=== PATIENT | female | born 1985 | race American Indian/Alaskan Native ===

== ENCOUNTER 2017-02-18 11:32 | Inpatient (IN) | payer BC ==
[2017-02-18 12:28] LABS: Basophils % (Auto) 0.7 % (0.0-1.8); Mean Corpuscular HGB Conc 31 % (30-34); Mean Corpuscular Hemoglobin 32 pg (28-32); Mean Corpuscular Volume 106 fl (79-97); Platelet Count 258 K/mm3 (140-440); Red Blood Count 4.62 M/mm3 (3.65-5.03); Red Cell Distribution Width 15.4 % (13.2-15.2); White Blood Count 13.4 K/mm3 (4.5-11.0)
[2017-02-18 12:38] LABS: Hematocrit 48.8 % (30.3-42.9)
[2017-02-18 12:40] LABS: Calcium 10.2 mg/dL (8.4-10.2); Potassium 5.6 mmol/L (3.6-5.0)
[2017-02-18] MEDS ORDERED: D50W (25GM) Syringe IV PRN (12:51)
[2017-02-18] MEDS ORDERED: NACL 0.9% 1000 ML 1,000 ML IV ONE ×2 (12:51)
[2017-02-18 12:56] LABS: Bilirubin,Urine NEG (Negative); Blood,Urine SM (Negative); Ketones,Urine 80 mg/dL (Negative); Leukocyte Esterase,Urine NEG (Negative); Mucus,Urine FEW /HPF; Nitrite,Urine NEG (Negative); Protein,Urine <15 mg/dL mg/dL (Negative); Urobilinogen,Urine < 2.0 mg/dL (<2.0)
--- NOTE | 2017-02-18 12:57 | Emergency Department Report ---
- General Chief complaint: Hyperglycemia Stated complaint: HEART PALPATIONS,HIGH BLOOD SUGAR Time Seen by Provider: 02/18/17 12:31 Source: patient Mode of arrival: Ambulatory Limitations: No Limitations - History of Present Illness Initial comments: 31-year-old female presents emergency Department with elevated blood sugar. Patient states she noticed her blood sugar was high yesterday. Today she feels weak and is having palpitations. She also has some urinary frequency and a increased thirst. Denies fevers chills nausea vomiting. MD Complaint: generalized weakness -: Gradual Location: generalized Severity scale (0 -10): 7 Improves with: none Worsens with: none Associated Symptoms: denies: chest pain, confusion, dark stools, diaphoresis - Related Data Allergies Allergy/AdvReac Type Severity Reaction Status Date / Time No Known Allergies Allergy Verified 02/18/17 11:44 ED Review of Systems ROS: Stated complaint: HEART PALPATIONS,HIGH BLOOD SUGAR Other details as noted in HPI Comment: All other systems reviewed and negative Constitutional: weakness. denies: chills, fever Respiratory: denies: cough, shortness of breath, wheezing Cardiovascular: denies: chest pain, palpitations Endocrine: no symptoms reported Gastrointestinal: denies: abdominal pain, nausea, diarrhea Genitourinary: denies: urgency, dysuria, discharge Musculoskeletal: denies: back pain, joint swelling, arthralgia Skin: denies: rash, lesions Neurological: denies: headache, weakness, paresthesias Psychiatric: denies: anxiety, depression Hematological/Lymphatic: denies: easy bleeding, easy bruising ED Past Medical Hx - Past Medical History Previous Medical History?: Yes Hx Hypertension: Yes Hx Diabetes: Yes - Surgical History Past Surgical History?: No - Family History Family history: no significant - Social History Smoking Status: Current Every Day Smoker Substance Use Type: Alcohol ED Physical Exam - General Limitations: No Limitations General appearance: alert, in no apparent distress - Head Head exam: Present: atraumatic, normocephalic - Eye Eye exam: Present: normal appearance, scleral icterus, conjunctival injection - ENT ENT exam: Present: mucous membranes dry - Neck Neck exam: Present: normal inspection. Absent: tenderness - Respiratory Respiratory exam: Present: normal lung sounds bilaterally. Absent: respiratory distress - Cardiovascular Cardiovascular Exam: Present: regular rate, normal rhythm. Absent: systolic murmur, diastolic murmur, rubs, gallop - GI/Abdominal GI/Abdominal exam: Present: soft, normal bowel sounds. Absent: distended, tenderness - Extremities Exam Extremities exam: Present: normal inspection, pedal edema - Back Exam Back exam: Present: normal inspection. Absent: tenderness, CVA tenderness (R), CVA tenderness (L) - Neurological Exam Neurological exam: Present: alert, oriented X3 - Psychiatric Psychiatric exam: Present: normal affect, normal mood - Skin Skin exam: Present: warm, dry, intact, normal color. Absent: rash ED Course Vital Signs 02/18/17 02/18/17 02/18/17 11:45 12:36 12:41 Temperature 98.3 F 97.6 F Pulse Rate 124 H 111 H 109 H Respiratory 30 H 21 Rate Blood Pressure 139/72 Blood Pressure 122/78 [Left] O2 Sat by Pulse 99 100 Oximetry ED Medical Decision Making - Lab Data Result diagrams: 02/18/17 12:07 02/18/17 12:07 Laboratory Results - last 24 hr 02/18/17 02/18/17 02/18/17 11:51 11:54 12:07 WBC 13.4 H RBC 4.62 Hgb 15.0 H Hct 48.8 H MCV 106 H MCH 32 MCHC 31 RDW 15.4 H Plt Count 258 Lymph % (Auto) 9.9 L [place] % (Auto) 9.3 H Eos % (Auto) 0.0 Baso % (Auto) 0.7 Lymph # 1.3 [place] # 1.2 H Eos # 0.0 Baso # 0.1 Seg Neutrophils % 80.1 H Seg Neutrophils # 10.7 H VBG pH Sodium Potassium Chloride Carbon Dioxide Anion Gap BUN Creatinine Estimated GFR BUN/Creatinine Ratio Glucose POC Glucose > 500 H Calcium Urine Color Straw Urine Turbidity Clear Urine pH 5.0 Ur Specific [place] 1.016 Urine Protein <15 mg/dl Urine Glucose (UA) >=500 Urine Ketones 80 Urine Blood Sm Urine Nitrite Neg Urine Bilirubin Neg Urine Urobilinogen < 2.0 Ur Leukocyte Esterase Neg Urine WBC (Auto) 2.0 Urine RBC (Auto) 1.0 U Epithel Cells (Auto) < 1.0 Urine Mucus Few 02/18/17 02/18/17 12:07 12:07 WBC RBC Hgb Hct MCV MCH MCHC RDW Plt Count Lymph % (Auto) [place] % (Auto) Eos % (Auto) Baso % (Auto) Lymph # [place] # Eos # Baso # Seg Neutrophils % Seg Neutrophils # VBG pH 7.082 L* Sodium 127 L Potassium 5.6 H Chloride 78.0 L Carbon Dioxide 7 L* Anion Gap 48 BUN 27 H Creatinine 1.6 H Estimated GFR 38 BUN/Creatinine Ratio 17 Glucose 722 H* POC Glucose Calcium 10.2 Urine Color Urine Turbidity Urine pH Ur Specific [place] Urine Protein Urine Glucose (UA) Urine Ketones Urine Blood Urine Nitrite Urine Bilirubin Urine Urobilinogen Ur Leukocyte Esterase Urine WBC (Auto) Urine RBC (Auto) U Epithel Cells (Auto) Urine Mucus - Medical Decision Making 31-year-old female with diabetes here with DKA. Patient states that she took her long-acting insulin yesterday but has not been able to use her short-acting insulin for several days. Her pH is 7.08 and her bicarbonate is 17. I'll initiate insulin drip and IV fluids. Patient will need to be admitted to the emergency care unit initially. She is mentating well at this point. Discussed case with IMS and with the intensive care. Portions of this chart were dictated with dictation software. There may be dictation errors contained within this note. Critical Care Time: Yes (35) Critical care attestation.: If time is entered above; I have spent that time in minutes in the direct care of this critically ill patient, excluding procedure time. Critical Care Time: 35 ED Disposition Clinical Impression: DKA (diabetic ketoacidoses) Disposition: DC-09 OP ADMIT IP TO THIS HOSP Is pt being admited?: Yes Condition: Critical Instructions: Diabetic Ketoacidosis (ED)
[2017-02-18 13:24] LABS: Magnesium 2.4 mg/dL (1.7-2.3); Phosphorous 6.6 mg/dL (2.5-4.5)
[2017-02-18] MEDS ORDERED: NACL 0.9% 1000 ML IV ONE (13:47)
[2017-02-18] MEDS ORDERED: DULCOLAX PR PRN (13:47)
[2017-02-18] MEDS ORDERED: PROVENTIL IH PRN (13:47)
[2017-02-18] MEDS ORDERED: ALUM-MAG HYDROX-SIMETH 200-200-20MG/5ML PO PRN (13:47)
[2017-02-18] MEDS ORDERED: MILK OF MAGNESIA PO PRN (13:47)
[2017-02-18] MEDS ORDERED: VANCOMYCIN VIAL IV ONE (13:47)
--- NOTE | 2017-02-18 13:53 | History and Physical Report ---
History of Present Illness Chief complaint: My blood suger is real high, and i just feel sick, and my heart is beating fast History of present illness: 31 YO Female with HTN, DM, Nicotine Dependence, Medication Noncompliance presents to ED for evaluation. Pt states that she has experienced feeling weak and tired for the past 3-4 days with worsening symptoms over the past 12 hours. Pt acknowledges noncompliance with her insulin, polydipsia, polyuria, as well as her heart beating fast, and decreased oral intake. Pt denies fever, chills, CP, Syncope, trauma, vertigo, seizures, vision changes, skin rashes, or recent ill contacts. Pt seen and evaluated in ED and found to have Sepsis and DKA and started on DKA and sepsis protocols. Past History Past Medical History: diabetes, hypertension, other (Nicotine Dependence) Past Surgical History: No surgical history, Other (reviewed) Social history: single, smoking. denies: alcohol abuse, prescription drug abuse , IV drug use Family history: diabetes, hypertension Medications and Allergies Allergies Allergy/AdvReac Type Severity Reaction Status Date / Time No Known Allergies Allergy Verified 02/18/17 11:44 Home Medications Medication Instructions Recorded Confirmed Last Taken Type FLUoxetine HCL [Prozac] 10 mg PO DAILY 02/18/17 02/18/17 02/18/17 History Insulin Detemir [Levemir Flextouch] 28 units SC HS 02/18/17 02/18/17 02/17/17 History Insulin Lispro [Humalog 100 10 units SC TIDWM 02/18/17 02/18/17 02/18/17 11:00 History UNITS/ML Kwikpen] amLODIPine [Norvasc] 10 mg PO DAILY 02/18/17 02/18/17 02/18/17 History Active Meds: Active Medications Al Hydrox/Mg Hydrox/Simethicone (Alum-Mag Hydrox-Simeth 308-724-86rm/5ml) 30 ml PO Q4H PRN PRN Reason: Indigestion Albuterol (Proventil) 2.5 mg IH Q3HRT PRN PRN Reason: Shortness Of Breath Bisacodyl (Dulcolax) 10 mg GA QDAY PRN PRN Reason: constipation unrelieved by MOM Dextrose (D50w (25gm) Syringe) 0 ml IV ONCE PRN PRN Reason: Hypoglycemia Potassium Chloride (Kcl 10meq/100ml) 10 meq in 100 mls @ 100 mls/hr IV Q1H PORSHA Stop: 02/18/17 16:59 Potassium Chloride (Kcl 10meq/100ml) 10 meq in 100 mls @ 100 mls/hr IV Q1H PORSHA Stop: 02/18/17 18:59 Insulin Human Regular 100 (units/ Sodium Chloride) 100 mls @ 1 mls/hr IV TITR PORSHA; 1 UNITS/HR PRN Reason: Protocol Piperacillin Sod/Tazobactam Sod (Zosyn/Ns 4.5gm/100ml) 4.5 gm in 100 mls @ 200 mls/hr IV Q8HR PORSHA PRN Reason: Protocol Magnesium Hydroxide (Milk Of Magnesia) 30 ml PO Q4H PRN PRN Reason: Constipation Sodium Chloride (Nacl 0.9% 1000 Ml) 2,040 ml 30 ml/kg (2040 ml) IV ONCE ONE Stop: 02/18/17 13:48 Vancomycin HCl (Vancomycin Pharmacy To Dose) 1 each IV PKCONSULT PORSHA PRN Reason: Protocol Vancomycin HCl (Vancomycin Vial) 1,250 mg 20 mg/kg (1250 mg) IV ONCE ONE PRN Reason: Protocol Stop: 02/18/17 13:48 Review of Systems Constitutional: no weight loss, no weight gain, no fever, no chills, no sweats Ears, nose, mouth and throat: no ear pain, no ear discharge, no tinnitis, no decreased hearing, no nose pain Breasts: no change in shape, no swelling, no mass Cardiovascular: rapid/irregular heart beat, no chest pain, no orthopnea, no edema, no syncope, no lightheadedness, no shortness of breath Respiratory: no cough, no cough with sputum, no excessive sputum, no hemoptysis , no shortness of breath, no dyspnea on exertion Gastrointestinal: no abdominal pain, no nausea, no vomiting, no diarrhea, no constipation, no change in bowel habits Genitourinary Female: no pelvic pain, no flank pain, no menorrhagia Rectal: no pain, no incontinence, no bleeding Musculoskeletal: no neck stiffness, no neck pain, no shooting arm pain, no arm numbness/tingling, no low back pain Integumentary: no rash, no pruritis, no redness, no sores, no wounds, no jaundice Neurological: no head injury, no transient paralysis, no paralysis, no weakness , no parathesias, no numbness, no tingling Psychiatric: no anxiety, no memory loss, no change in sleep habits, no sleep disturbances, no insomnia, no hypersomnia Endocrine: excessive thirst, polydipsia, polyuria, high blood sugars, no cold intolerance, no heat intolerance, no excessive sweating, no flushing, no weight change, no deepening of the voice, no recent glucocorticoid use Hematologic/Lymphatic: no easy bruising, no easy bleeding Allergic/Immunologic: no urticaria, no allergic rhinitis, no wheezing Exam - Constitutional Vitals: Temp Pulse Resp BP Pulse Ox 97.6 F 109 H 21 122/78 100 02/18/17 12:41 02/18/17 12:41 02/18/17 12:41 02/18/17 12:41 02/18/17 12:41 General appearance: Present: mild distress, disheveled - EENT Eyes: Present: PERRL ENT: hearing intact, clear oral mucosa - Neck Neck: Present: supple, normal ROM - Respiratory Respiratory effort: normal Respiratory: bilateral: CTA - Cardiovascular Rhythm: other (tachycardia) Heart Sounds: Present: S1 & S2. Absent: gallop, systolic murmur, diastolic murmur, rub, click - Extremities Extremities: pulses symmetrical, No edema Peripheral Pulses: abnormal (Capillary refill: 3.5 seconds) - Abdominal General gastrointestinal: Present: soft, non-tender, non-distended, normal bowel sounds Female genitourinary: Present: normal - Integumentary Integumentary: Present: clear, dry, decreased turgor - Musculoskeletal Musculoskeletal: strength equal bilaterally - Psychiatric Psychiatric: appropriate mood/affect, intact judgment & insight - Neurologic Neurologic: CNII-XII intact, moves all extremities Results - Labs CBC & Chem 7: 02/18/17 12:07 02/18/17 Unknown Labs: Abnormal lab results 02/18/17 02/18/17 02/18/17 Range/Units 11:51 12:07 12:07 WBC 13.4 H (4.5-11.0) K/mm3 Hgb 15.0 H (10.1-14.3) gm/dl Hct 48.8 H (30.3-42.9) % MCV 106 H (79-97) fl RDW 15.4 H (13.2-15.2) % Lymph % (Auto) 9.9 L (13.4-35.0) % [place] % (Auto) 9.3 H (0.0-7.3) % [place] # 1.2 H (0.0-0.8) K/mm3 Seg Neutrophils % 80.1 H (40.0-70.0) % Seg Neutrophils # 10.7 H (1.8-7.7) K/mm3 VBG pH (7.320-7.420) Sodium 127 L (137-145) mmol/L Potassium 5.6 H (3.6-5.0) mmol/L Chloride 78.0 L (98-107) mmol/L Carbon Dioxide 7 L* (22-30) mmol/L BUN 27 H (7-17) mg/dL Creatinine 1.6 H (0.7-1.2) mg/dL Glucose 722 H* (65-100) mg/dL POC Glucose > 500 H (70-105) Phosphorus (2.5-4.5) mg/dL Magnesium (1.7-2.3) mg/dL 02/18/17 02/18/17 Range/Units 12:07 12:07 WBC (4.5-11.0) K/mm3 Hgb (10.1-14.3) gm/dl Hct (30.3-42.9) % MCV (79-97) fl RDW (13.2-15.2) % Lymph % (Auto) (13.4-35.0) % [place] % (Auto) (0.0-7.3) % [place] # (0.0-0.8) K/mm3 Seg Neutrophils % (40.0-70.0) % Seg Neutrophils # (1.8-7.7) K/mm3 VBG pH 7.082 L* (7.320-7.420) Sodium (137-145) mmol/L Potassium (3.6-5.0) mmol/L Chloride (98-107) mmol/L Carbon Dioxide (22-30) mmol/L BUN (7-17) mg/dL Creatinine (0.7-1.2) mg/dL Glucose (65-100) mg/dL POC Glucose (70-105) Phosphorus 6.60 H (2.5-4.5) mg/dL Magnesium 2.40 H (1.7-2.3) mg/dL Assessment and Plan - Patient Problems (1) Sepsis Current Visit: Yes Status: Acute Qualifiers: Sepsis type: S Plan to address problem: IV abx, IVF resuscitation, monitor uop q shift, blood cultures, serial lactic acid The high probability of a clinically significant, sudden or life threatening deterioration of the [Cardiac, pulmonary, endocrine] system(s) required my full and direct attention, intervention and personal management. The aggregate critical care time was [65] minutes. This time is in addition to time spent performing reported procedures but includes the following: [x] Data Review and interpretation [x] Patient assessment and monitoring of vital signs [x] Documentation [x] Medication orders and management (2) ARF (acute renal failure) Current Visit: Yes Status: Acute Qualifiers: Acute renal failure type: A Plan to address problem: IVF, monitor uop q shift, IVF resuscitation, repeat BMP (3) Metabolic acidosis Current Visit: Yes Status: Acute Plan to address problem: Treat sepsis, repeat bmp, ivf resuscitation (4) DKA (diabetic ketoacidoses) Current Visit: Yes Status: Acute Qualifiers: Diabetes mellitus type: D Diabetes mellitus complication detail: D Plan to address problem: DKA Protocol: Insulin drip, serial bmp, monitor anion gap, monitor serum potassium and replete per protocol, (5) DVT prophylaxis Current Visit: Yes Status: Acute
[2017-02-18] MEDS ORDERED: VANCOMYCIN PHARMACY TO DOSE IV SCH (14:00)
[2017-02-18] MEDS ORDERED: VANCOMYCIN 1,500 MG in NACL 0.9% 500 ML 500 ML IV ONE (14:00)
[2017-02-18] MEDS: KCL 10MEQ/100ML 10 MEQ/100 ML BAG IV SCH ×8 (14:04→21:24)
[2017-02-18] MEDS ORDERED: TYLENOL PO ONE (14:24)
[2017-02-18] MEDS: ZOSYN/NS 4.5GM/100ML 4.5 GM/100 ML VIAL IV SCH ×2 (14:48→22:56)
[2017-02-18 15:15] LABS: Calcium 9.7 mg/dL (8.4-10.2)
[2017-02-18] MEDS: NovoLIN R 100 UNITS in NACL 0.9% 99 ML IV SCH (15:48)
[2017-02-18 16:02] LABS: Chloride 86.8 mmol/L (98-107); Potassium 5.4 mmol/L (3.6-5.0)
[2017-02-18] MEDS ORDERED: NACL 0.9% 1000 ML 1,000 ML ONE (16:17)
[2017-02-18] MEDS ORDERED: Fluarix Quad 2017-2018(36 MOS+) IM ONE (17:56)
[2017-02-18 18:08] LABS: BUN/Creatinine Ratio 18; Blood Urea Nitrogen 18 mg/dL (7-17); Calcium 8.4 mg/dL (8.4-10.2); Carbon Dioxide 27 mmol/L (22-30); Chloride 99.3 mmol/L (98-107); Glucose 120 mg/dL (65-100); Potassium 4.2 mmol/L (3.6-5.0); Sodium 136 mmol/L (137-145)
[2017-02-18 18:28] LABS: Anion Gap 14 mmol/L
[2017-02-18] MEDS ORDERED: D5/0.45NS 1,000 ML IV SCH (19:00)
[2017-02-18] MEDS ORDERED: D5NS 0.2% 1,000 ML IV ONE (19:26)
[2017-02-18] MEDS ORDERED: D5/0.45NS 1,000 ML IV ONE (19:41)
[2017-02-18 19:52] LABS: BUN/Creatinine Ratio 17; Blood Urea Nitrogen 17 mg/dL (7-17); Calcium 9.2 mg/dL (8.4-10.2); Carbon Dioxide 17 mmol/L (22-30); Chloride 97.2 mmol/L (98-107); Glucose 173 mg/dL (65-100); Potassium 4.7 mmol/L (3.6-5.0); Sodium 139 mmol/L (137-145)
[2017-02-18 19:56] LABS: Anion Gap 30 mmol/L
[2017-02-18] MEDS ORDERED: KCL 10MEQ/100ML 10 MEQ/100 ML BAG IV ONE (21:25)
[2017-02-18 21:31] LABS: BUN/Creatinine Ratio 17; Blood Urea Nitrogen 17 mg/dL (7-17); Calcium 9.5 mg/dL (8.4-10.2); Carbon Dioxide 18 mmol/L (22-30); Glucose 160 mg/dL (65-100)
[2017-02-18 21:32] LABS: Anion Gap 30 mmol/L; Chloride 97.1 mmol/L (98-107); Potassium 4.8 mmol/L (3.6-5.0); Sodium 140 mmol/L (137-145)
[2017-02-19 05:35] LABS: BUN/Creatinine Ratio 15; Blood Urea Nitrogen 12 mg/dL (7-17); Calcium 8.2 mg/dL (8.4-10.2); Carbon Dioxide 18 mmol/L (22-30); Chloride 106.3 mmol/L (98-107); Glucose 89 mg/dL (65-100); Sodium 141 mmol/L (137-145)
[2017-02-19 05:45] LABS: Anion Gap 22 mmol/L; Potassium 4.8 mmol/L (3.6-5.0)
[2017-02-19] MEDS ORDERED: D5/0.45NS 1,000 ML IV SCH ×2 (06:20→07:00)
[2017-02-19] MEDS: D5/0.45NS 1,000 ML IV SCH (06:35)
[2017-02-19] MEDS: ZOSYN/NS 4.5GM/100ML 4.5 GM/100 ML VIAL IV SCH ×3 (06:37→22:19)
[2017-02-19 07:16] LABS: Anion Gap 24 mmol/L; BUN/Creatinine Ratio 15; Blood Urea Nitrogen 12 mg/dL (7-17); Calcium 8.6 mg/dL (8.4-10.2); Carbon Dioxide 20 mmol/L (22-30); Chloride 100.9 mmol/L (98-107); Glucose 107 mg/dL (65-100); Potassium 4.1 mmol/L (3.6-5.0); Sodium 141 mmol/L (137-145)
[2017-02-19] MEDS ORDERED: VANCOMYCIN/NS 1 GM/250 ML 1 GM/250 ML BAG IV SCH (14:00)
--- NOTE | 2017-02-19 14:26 | Progress Note ---
Assessment and Plan Assessment and plan: 31 years old female with diabetes, uncontrolled due to noncompliance, admitted for DKA 1. DKA Started on insulin drip on admission, but discontinued last night due to a BS< 100; anion gap increased to 24 this morning Restart insulin drip along with D5 1/2NS Keep NPO BMP Q4H 2. Metabolic acidosis Likely secondary to DKA No symptoms/signs of infection; UA negative 3. Acute kidney injury Secondary to volume depletion Resolved with IV fluids 4. Hypertension SBP in 120s on no medications Monitor BP 5. Nicotine dependence Counseled regarding importance of quitting Nicotine patch if needed 6. Noncompliance Extensively counseled regarding importance of adherence to treatment and follow- up appointments 7. DVT prophylaxis cc 35 min History Interval history: feeling better, no specific complaints, except for left arm swelling and pain at the ex IV site; hungry, asking for food; last night insulin drip d/c-ed due to "hypoglycemia" and AG increased again; drip restarted this morning along with D5 1/2 NS Hospitalist Physical - Constitutional Vitals: Temp Pulse Resp BP Pulse Ox 98.2 F 65 14 112/69 100 02/19/17 11:00 02/19/17 13:31 02/19/17 13:31 02/19/17 13:31 02/19/17 13:31 General appearance: Present: no acute distress - EENT Eyes: Present: PERRL, EOM intact. Absent: scleral icterus, conjunctival injection - Neck Neck: Present: supple, normal ROM. Absent: masses or JVD - Respiratory Respiratory effort: normal Respiratory: bilateral: CTA, negative: rhonchi, wheezing - Cardiovascular Rhythm: regular Heart Sounds: Present: S1 & S2. Absent: systolic murmur - Extremities Extremities: no ischemia, abnormal (left arm edema) - Abdominal General gastrointestinal: soft, non-tender, non-distended, normal bowel sounds - Psychiatric Psychiatric: no intact judgment & insight, cooperative - Neurologic Neurologic: CNII-XII intact, no focal deficits Results - Labs CBC & Chem 7: 02/18/17 12:07 02/19/17 15:18 Labs: Laboratory Last Values WBC 13.4 K/mm3 (4.5-11.0) H 02/18/17 12:07 RBC 4.62 M/mm3 (3.65-5.03) 02/18/17 12:07 Hgb 15.0 gm/dl (10.1-14.3) H 02/18/17 12:07 Hct 48.8 % (30.3-42.9) H 02/18/17 12:07 MCV 106 fl (79-97) H 02/18/17 12:07 MCH 32 pg (28-32) 02/18/17 12:07 MCHC 31 % (30-34) 02/18/17 12:07 RDW 15.4 % (13.2-15.2) H 02/18/17 12:07 Plt Count 258 K/mm3 (140-440) 02/18/17 12:07 Lymph % (Auto) 9.9 % (13.4-35.0) L 02/18/17 12:07 [place] % (Auto) 9.3 % (0.0-7.3) H 02/18/17 12:07 Eos % (Auto) 0.0 % (0.0-4.3) 02/18/17 12:07 Baso % (Auto) 0.7 % (0.0-1.8) 02/18/17 12:07 Lymph # 1.3 K/mm3 (1.2-5.4) 02/18/17 12:07 [place] # 1.2 K/mm3 (0.0-0.8) H 02/18/17 12:07 Eos # 0.0 K/mm3 (0.0-0.4) 02/18/17 12:07 Baso # 0.1 K/mm3 (0.0-0.1) 02/18/17 12:07 Seg Neutrophils % 80.1 % (40.0-70.0) H 02/18/17 12:07 Seg Neutrophils # 10.7 K/mm3 (1.8-7.7) H 02/18/17 12:07 VBG pH 7.082 (7.320-7.420) L* 02/18/17 12:07 Sodium 141 mmol/L (137-145) 02/19/17 06:50 Potassium 4.1 mmol/L (3.6-5.0) 02/19/17 06:50 Chloride 100.9 mmol/L (98-107) 02/19/17 06:50 Carbon Dioxide 20 mmol/L (22-30) L 02/19/17 06:50 Anion Gap 24 mmol/L 02/19/17 06:50 BUN 12 mg/dL (7-17) 02/19/17 06:50 Creatinine 0.8 mg/dL (0.7-1.2) 02/19/17 06:50 Estimated GFR > 60 ml/min 02/19/17 06:50 BUN/Creatinine Ratio 15 % 02/19/17 06:50 Glucose 107 mg/dL (65-100) H 02/19/17 06:50 POC Glucose 136 (70-105) H 02/19/17 13:16 Lactic Acid 2.10 mmol/L (0.7-2.0) H* 02/18/17 19:05 Calcium 8.6 mg/dL (8.4-10.2) 02/19/17 06:50 Phosphorus 6.60 mg/dL (2.5-4.5) H 02/18/17 12:07 Magnesium 2.40 mg/dL (1.7-2.3) H 02/18/17 12:07 Urine Color Straw (Yellow) 02/18/17 11:54 Urine Turbidity Clear (Clear) 02/18/17 11:54 Urine pH 5.0 (5.0-7.0) 02/18/17 11:54 Ur Specific [place] 1.016 (1.003-1.030) 02/18/17 11:54 Urine Protein <15 mg/dl mg/dL (Negative) 02/18/17 11:54 Urine Glucose (UA) >=500 mg/dL (Negative) 02/18/17 11:54 Urine Ketones 80 mg/dL (Negative) 02/18/17 11:54 Urine Blood Sm (Negative) 02/18/17 11:54 Urine Nitrite Neg (Negative) 02/18/17 11:54 Urine Bilirubin Neg (Negative) 02/18/17 11:54 Urine Urobilinogen < 2.0 mg/dL (<2.0) 02/18/17 11:54 Ur Leukocyte Esterase Neg (Negative) 02/18/17 11:54 Urine WBC (Auto) 2.0 /HPF (0.0-6.0) 02/18/17 11:54 Urine RBC (Auto) 1.0 /HPF (0.0-6.0) 02/18/17 11:54 U Epithel Cells (Auto) < 1.0 /HPF (0-13.0) 02/18/17 11:54 Urine Mucus Few /HPF 02/18/17 11:54 Blood Type B POSITIVE 02/18/17 15:26 Antibody Screen TNR 02/18/17 15:26 RICHARD Antibody Screen Negative 02/18/17 15:26
[2017-02-19 16:06] LABS: BUN/Creatinine Ratio 13; Blood Urea Nitrogen 9 mg/dL (7-17); Calcium 8.8 mg/dL (8.4-10.2); Carbon Dioxide 16 mmol/L (22-30); Chloride 105.9 mmol/L (98-107); Glucose 170 mg/dL (65-100); Sodium 142 mmol/L (137-145)
[2017-02-19 16:53] LABS: Anion Gap 26 mmol/L; Potassium 5.5 mmol/L (3.6-5.0)
[2017-02-19 21:27] LABS: Anion Gap 16 mmol/L; BUN/Creatinine Ratio 13; Blood Urea Nitrogen 8 mg/dL (7-17); Calcium 8.4 mg/dL (8.4-10.2); Carbon Dioxide 22 mmol/L (22-30); Chloride 106.8 mmol/L (98-107); Glucose 148 mg/dL (65-100); Sodium 141 mmol/L (137-145)
[2017-02-19 21:28] LABS: Potassium 3.4 mmol/L (3.6-5.0)
[2017-02-19 22:37] LABS: Anion Gap 14 mmol/L; BUN/Creatinine Ratio 12; Blood Urea Nitrogen 7 mg/dL (7-17); Calcium 8.3 mg/dL (8.4-10.2); Carbon Dioxide 23 mmol/L (22-30); Chloride 107.9 mmol/L (98-107); Glucose 152 mg/dL (65-100); Potassium 3.1 mmol/L (3.6-5.0); Sodium 142 mmol/L (137-145)
[2017-02-20 03:35] LABS: Anion Gap 18 mmol/L; BUN/Creatinine Ratio 14; Blood Urea Nitrogen 7 mg/dL (7-17); Calcium 8.4 mg/dL (8.4-10.2); Carbon Dioxide 21 mmol/L (22-30); Chloride 104.7 mmol/L (98-107); Glucose 179 mg/dL (65-100); Potassium 3.1 mmol/L (3.6-5.0); Sodium 141 mmol/L (137-145)
[2017-02-20] MEDS: ZOSYN/NS 4.5GM/100ML 4.5 GM/100 ML VIAL IV SCH (06:30)
[2017-02-20] MEDS: NovoLIN R 100 UNITS in NACL 0.9% 99 ML IV SCH (09:40)
[2017-02-20] MEDS: D5/0.45NS 1,000 ML IV SCH (10:35)
[2017-02-20] MEDS ORDERED: LEVEMIR SUB-Q SCH (11:28)
--- NOTE | 2017-02-20 11:44 | Progress Note ---
Assessment and Plan Assessment and plan: 31 years old female with diabetes, uncontrolled due to noncompliance, admitted for DKA 1. DKA AG closed this morning, will transition to subcutaneous insulin, long-acting and short-acting with meals; in addition, SSI based Accu-Cheks to assess insulin requirements Start consistent carbohydrates diet 2. Metabolic acidosis Likely secondary to DKA Improved 3. Acute kidney injury Secondary to volume depletion Resolved with IV fluids 4. Hypertension SBP in 110-100s on no medications Continue to monitor BP 5. Nicotine dependence Counseled regarding importance of quitting Nicotine patch if needed 6. Noncompliance Extensively counseled regarding importance of adherence to treatment and follow- up appointments 7. DVT prophylaxis History Interval history: doing well, no complaints, AG closed this morning Hospitalist Physical - Constitutional Vitals: Temp Pulse Resp BP Pulse Ox 98.7 F 62 14 108/74 100 02/20/17 02:00 02/20/17 08:00 02/20/17 08:24 02/20/17 08:00 02/20/17 08:24 General appearance: Present: no acute distress, well-nourished - EENT Eyes: Present: PERRL, EOM intact. Absent: scleral icterus, conjunctival injection - Neck Neck: Present: supple, normal ROM. Absent: masses or JVD - Respiratory Respiratory effort: normal Respiratory: bilateral: CTA, negative: rhonchi, wheezing - Cardiovascular Rhythm: regular Heart Sounds: Present: S1 & S2. Absent: systolic murmur - Extremities Extremities: no ischemia - Abdominal General gastrointestinal: soft, non-tender, non-distended, normal bowel sounds - Psychiatric Psychiatric: cooperative - Neurologic Neurologic: CNII-XII intact, no focal deficits Results - Labs CBC & Chem 7: 02/18/17 12:07 02/20/17 03:00 Labs: Laboratory Last Values WBC 13.4 K/mm3 (4.5-11.0) H 02/18/17 12:07 RBC 4.62 M/mm3 (3.65-5.03) 02/18/17 12:07 Hgb 15.0 gm/dl (10.1-14.3) H 02/18/17 12:07 Hct 48.8 % (30.3-42.9) H 02/18/17 12:07 MCV 106 fl (79-97) H 02/18/17 12:07 MCH 32 pg (28-32) 02/18/17 12:07 MCHC 31 % (30-34) 02/18/17 12:07 RDW 15.4 % (13.2-15.2) H 02/18/17 12:07 Plt Count 258 K/mm3 (140-440) 02/18/17 12:07 Lymph % (Auto) 9.9 % (13.4-35.0) L 02/18/17 12:07 [place] % (Auto) 9.3 % (0.0-7.3) H 02/18/17 12:07 Eos % (Auto) 0.0 % (0.0-4.3) 02/18/17 12:07 Baso % (Auto) 0.7 % (0.0-1.8) 02/18/17 12:07 Lymph # 1.3 K/mm3 (1.2-5.4) 02/18/17 12:07 [place] # 1.2 K/mm3 (0.0-0.8) H 02/18/17 12:07 Eos # 0.0 K/mm3 (0.0-0.4) 02/18/17 12:07 Baso # 0.1 K/mm3 (0.0-0.1) 02/18/17 12:07 Seg Neutrophils % 80.1 % (40.0-70.0) H 02/18/17 12:07 Seg Neutrophils # 10.7 K/mm3 (1.8-7.7) H 02/18/17 12:07 VBG pH 7.082 (7.320-7.420) L* 02/18/17 12:07 Sodium 141 mmol/L (137-145) 02/20/17 03:00 Potassium 3.1 mmol/L (3.6-5.0) L 02/20/17 03:00 Chloride 104.7 mmol/L (98-107) 02/20/17 03:00 Carbon Dioxide 21 mmol/L (22-30) L 02/20/17 03:00 Anion Gap 18 mmol/L 02/20/17 03:00 BUN 7 mg/dL (7-17) 02/20/17 03:00 Creatinine 0.5 mg/dL (0.7-1.2) L 02/20/17 03:00 Estimated GFR > 60 ml/min 02/20/17 03:00 BUN/Creatinine Ratio 14 % 02/20/17 03:00 Glucose 179 mg/dL (65-100) H 02/20/17 03:00 POC Glucose 228 (70-105) H 02/20/17 10:36 Lactic Acid 2.10 mmol/L (0.7-2.0) H* 02/18/17 19:05 Calcium 8.4 mg/dL (8.4-10.2) 02/20/17 03:00 Phosphorus 6.60 mg/dL (2.5-4.5) H 02/18/17 12:07 Magnesium 2.40 mg/dL (1.7-2.3) H 02/18/17 12:07 Urine Color Straw (Yellow) 02/18/17 11:54 Urine Turbidity Clear (Clear) 02/18/17 11:54 Urine pH 5.0 (5.0-7.0) 02/18/17 11:54 Ur Specific [place] 1.016 (1.003-1.030) 02/18/17 11:54 Urine Protein <15 mg/dl mg/dL (Negative) 02/18/17 11:54 Urine Glucose (UA) >=500 mg/dL (Negative) 02/18/17 11:54 Urine Ketones 80 mg/dL (Negative) 02/18/17 11:54 Urine Blood Sm (Negative) 02/18/17 11:54 Urine Nitrite Neg (Negative) 02/18/17 11:54 Urine Bilirubin Neg (Negative) 02/18/17 11:54 Urine Urobilinogen < 2.0 mg/dL (<2.0) 02/18/17 11:54 Ur Leukocyte Esterase Neg (Negative) 02/18/17 11:54 Urine WBC (Auto) 2.0 /HPF (0.0-6.0) 02/18/17 11:54 Urine RBC (Auto) 1.0 /HPF (0.0-6.0) 02/18/17 11:54 U Epithel Cells (Auto) < 1.0 /HPF (0-13.0) 02/18/17 11:54 Urine Mucus Few /HPF 02/18/17 11:54 Blood Type B POSITIVE 02/18/17 15:26 Antibody Screen TNR 02/18/17 15:26 RICHARD Antibody Screen Negative 02/18/17 15:26
[2017-02-20] MEDS: NOVOLOG SUB-Q SCH ×4 (13:00→17:18)
[2017-02-20 15:23] VITALS: BP 109/75
[2017-02-20 16:20] LABS: Basophils % (Auto) 2.5 % (0.0-1.8); Eosinophils % (Auto) 2.1 % (0.0-4.3); Hematocrit 38.3 % (30.3-42.9); Hemoglobin 13.3 gm/dl (10.1-14.3); Mean Corpuscular HGB Conc 35 % (30-34); Mean Corpuscular Hemoglobin 34 pg (28-32); Mean Corpuscular Volume 97 fl (79-97); Platelet Count 167 K/mm3 (140-440); Red Blood Count 3.95 M/mm3 (3.65-5.03); White Blood Count 5.6 K/mm3 (4.5-11.0)
[2017-02-20 16:41] LABS: Anion Gap 18 mmol/L; BUN/Creatinine Ratio 14; Blood Urea Nitrogen 7 mg/dL (7-17); Calcium 8.6 mg/dL (8.4-10.2); Carbon Dioxide 24 mmol/L (22-30); Chloride 101.6 mmol/L (98-107); Glucose 157 mg/dL (65-100); Potassium 3.3 mmol/L (3.6-5.0); Sodium 140 mmol/L (137-145)
--- NOTE | 2017-02-20 19:49 | Discharge Summary ---
Providers - Providers Date of Admission: 02/18/17 13:47 Date of discharge: 02/20/17 Attending physician: ANNALISA SIMPSON 02/19/17 17:04 Consult to Physician [CONS] Urgent Consulting Provider: WILLOW BARRIGA Reason For Exam: ICU management Place consult to:: answering service Notified:: yes Phone number called:: [phone] Was contact made?: Yes If yes, spoke with:: Ирина Time called:: 17:10 Primary care physician: SAFETY LEAD Hospitalization Condition: Critical Hospital course: After transitioned to subcutaneous insulin patient left AMA. Disposition: DC-07 LEFT AGAINST MED ADVICE Core Measure Documentation - Palliative Care Palliative Care/ Comfort Measures: Not Applicable - Core Measures Any of the following diagnoses?: none Exam - Constitutional Vitals: Temp Pulse Resp BP Pulse Ox 98.7 F 54 L 14 109/75 100 02/20/17 02:00 02/20/17 15:21 02/20/17 08:24 02/20/17 15:21 02/20/17 08:24 Plan Follow up with: PRIMARY CARE, [Primary Care Provider] - 3-5 Days Forms: AMA Form, Work/School Release Form
[2017-02-21] MEDS ORDERED: Fluarix Quad 2017-2018(36 MOS+) IM ONE (12:00)
--- NOTE | 2017-02-22 07:31 | Vascular Lab Report ---
RIGHT UPPER EXTREMITY VENOUS DUPLEX: REASON FOR EXAM: Pain and swelling of the right upper extremity COMMENTS ON THE RIGHT: All arm veins visualized are freely compressible without evidence of internal echogenicity. The subclavian and internal jugular veins are free of thrombus. Flow is spontaneous and phasic throughout. COMMENTS ON THE LEFT: The subclavian and internal jugular veins are free of thrombus. IMPRESSION: No evidence of acute or chronic deep venous thrombosis in the right upper extremity.
== END 2017-02-20 19:26 | disposition left against medical advice (07) | DRG 871 ==
LOC: EDBD → ED 11:32 → CC1 13:47 → 4A 02-20 13:53
PROVIDERS: ADMIT Internal Medicine; ATTEND Internal Medicine
PROC: 3E0234Z Introduction of Serum, Toxoid and Vaccine into Muscle, Percutaneous Approach (ICD-10-PCS; principal; 2017-02-18)
DX: A41.9 Sepsis, unspecified organism (principal); E13.10 Other specified diabetes mellitus with ketoacidosis without coma; N17.9 Acute kidney failure, unspecified; Z23 Encounter for immunization; I10 Essential (primary) hypertension; F17.200 Nicotine dependence, unspecified, uncomplicated; Z83.3 Family history of diabetes mellitus; Z82.49 Family history of ischemic heart disease and other diseases of the circulatory system; Z91.19 Patient's noncompliance with other medical treatment and regimen
CPT/HCPCS: 36415; 80048; 81001; 82140; 82805; 82962; 83735; 84100; 85025; 86850; 86900; 86901; 90686; 93005; 93010; 96361; 96365; 96367; J1815; J1818; J2543; J3370; J3480; J7030; J7040